=== PATIENT | male | born 1960 | race Two or more races ===

== ENCOUNTER 2017-10-30 12:59 | Outpatient (CLI) | payer OTHER | END 2017-10-30 16:10 | disposition home or self-care (01) | LOC: RAD 501 12:59 | DX: M25.561 Pain in right knee (principal) ==

== ENCOUNTER 2018-04-03 10:42 | Outpatient (CLI) | payer OTHER | END 2018-04-03 15:04 | disposition home or self-care (01) | LOC: SONOGRAMA 10:42 | DX: R10.84 Generalized abdominal pain (principal); S83.203A Other tear of unspecified meniscus, current injury, right knee, initial encounter | CPT/HCPCS: 73721 ==

== ENCOUNTER 2018-06-20 10:23 | Outpatient (CLI) | payer OTHER | END 2018-06-20 19:51 | disposition home or self-care (01) | LOC: NUCLEAR 10:23 | DX: I82.403 Acute embolism and thrombosis of unspecified deep veins of lower extremity, bilateral (principal); I82.523 Chronic embolism and thrombosis of iliac vein, bilateral ==

== ENCOUNTER 2019-02-18 10:26 | Outpatient (CLI) | payer OTHER | END 2019-02-18 10:27 | disposition home or self-care (01) | LOC: SONOGRAMA 10:26 | DX: R10.84 Generalized abdominal pain (principal) ==

== ENCOUNTER 2019-12-29 11:05 | Outpatient (CLI) | payer OTHER | END 2019-12-29 11:18 | disposition home or self-care (01) | LOC: MRI 11:05 | DX: M23.301 Other meniscus derangements, unspecified lateral meniscus, left knee (principal) | CPT/HCPCS: 73721 ==

== ENCOUNTER 2020-07-30 10:36 | Outpatient (CLI) | payer OTHER | END 2020-07-30 10:45 | disposition home or self-care (01) | LOC: RAD 10:36 | PROVIDERS: ATTEND Ophthalmology | DX: R07.89 Other chest pain (principal); Z00.00 Encounter for general adult medical examination without abnormal findings; H25.011 Cortical age-related cataract, right eye; Z98.41 Cataract extraction status, right eye ==

== ENCOUNTER 2020-08-01 14:51 | Outpatient (CLI) | payer OTHER | END 2020-08-01 14:52 | disposition home or self-care (01) | LOC: RAD 14:51 | PROVIDERS: ATTEND Specialist | DX: M65.221 Calcific tendinitis, right upper arm (principal) ==

== ENCOUNTER 2020-12-30 08:42 | Outpatient (CLI) | payer OTHER | END 2020-12-30 08:53 | disposition home or self-care (01) | LOC: RAD 08:42 | PROVIDERS: ATTEND Specialist | DX: N20.0 Calculus of kidney (principal) | CPT/HCPCS: 74177; Q9965 ==

== ENCOUNTER 2021-01-30 12:43 | Outpatient (CLI) | payer OTHER | END 2021-01-30 12:45 | disposition home or self-care (01) | LOC: RAD 12:43 | DX: N20.0 Calculus of kidney (principal) ==

== ENCOUNTER 2021-09-11 13:47 | Outpatient (CLI) | payer OTHER | END 2021-09-11 14:00 | disposition home or self-care (01) | LOC: MRI 13:47 | PROVIDERS: ATTEND Specialist | DX: M48.07 Spinal stenosis, lumbosacral region (principal); M46.46 Discitis, unspecified, lumbar region | CPT/HCPCS: 72148 ==

== ENCOUNTER 2021-12-19 07:38 | Outpatient (CLI) | payer OTHER | END 2021-12-19 07:58 | disposition home or self-care (01) | LOC: TOM 07:38 | PROVIDERS: ATTEND Internal Medicine Nephrology | DX: N20.2 Calculus of kidney with calculus of ureter (principal); N18.2 Chronic kidney disease, stage 2 (mild) ==

== ENCOUNTER 2022-09-25 07:26 | Outpatient (CLI) | payer OTHER | END 2022-09-25 07:33 | disposition home or self-care (01) | LOC: SONOGRAMA 07:26 | PROVIDERS: ATTEND General Practice | DX: R10.9 Unspecified abdominal pain (principal) ==

== ENCOUNTER → 2025-07-02 09:44 | Outpatient (CLI) | payer OTHER | END | disposition home or self-care (01) | LOC: NUCLEAR 09:44 | PROVIDERS: ATTEND Internal Medicine Gastroenterology | DX: R10.11 Right upper quadrant pain (principal) | CPT/HCPCS: 78227; A9537 ==